=== PATIENT | male | born 1960 | race Caucasian/White ===

== ENCOUNTER 2023-05-29 15:18 | Outpatient (RCR) | payer OTHER, SELFPAY | END 2023-05-29 23:59 | disposition home or self-care (01) | LOC: RPT 15:18 | PROVIDERS: ATTENDING PHYSICIAN Urology; PRIMARYCARE PHYSICIAN Internal Medicine | DX: C61 Malignant neoplasm of prostate (principal); M62.89 Other specified disorders of muscle; N39.3 Stress incontinence (female) (male); R10.2 Pelvic and perineal pain | CPT/HCPCS: 97110; 97112; 97164; 97530 ==

== ENCOUNTER → 2024-08-13 07:36 | Outpatient (REF) | payer OTHER, SELFPAY | LOC: MRI 3T 07:36 | PROVIDERS: ATTENDING PHYSICIAN Radiology Radiation Oncology; FAMILY PHYSICIAN Internal Medicine | DX: C61 Malignant neoplasm of prostate (principal) | CPT/HCPCS: 72197; A9575 ==